=== PATIENT | female | born 1960 | race Caucasian/White ===

== ENCOUNTER → 2017-06-04 | Outpatient (CLI) | payer OTHER | END | disposition home or self-care (01) | LOC: LABWHC1 10:47 | PROVIDERS: ATTEND Physician Assistant | DX: D51.9 Vitamin B12 deficiency anemia, unspecified (principal) | CPT/HCPCS: 36415; 82607 ==

== ENCOUNTER → 2017-07-16 | Outpatient (CLI) | payer OTHER | END | disposition home or self-care (01) | LOC: LABWHC1 13:12 | PROVIDERS: ATTEND Physician Assistant | DX: R53.83 Other fatigue (principal) | CPT/HCPCS: 36415; 82607 ==

== ENCOUNTER → 2017-10-04 | Outpatient (CLI) | payer OTHER | LOC: LABWHC1 11:42 | PROVIDERS: ATTEND Physician Assistant | DX: R53.83 Other fatigue (principal) | CPT/HCPCS: 36415; 82607 ==

== ENCOUNTER → 2018-05-22 | Outpatient (CLI) | payer OTHER ==
--- NOTE | 2018-05-22 15:46 | FL ---
EXAMINATION TYPE: FL arthrogram shoulder RT fluoroscopic-guided arthrogram injection. DATE OF EXAM: 05/22/2018 HISTORY: Acute on chronic right shoulder pain PROCEDURES: 1. 28 seconds of fluoroscopy. 2. Right shoulder arthrogram. 3. A single fluoroscopic image was saved. TECHNIQUE: The procedure, risks, and alternatives, were discussed with the patient, who requested that nancie wong The consent form was signed, and teach-back occurred. The site/side of the procedure was marked with a line with participation by the patient. The accompan rodolfo paperwork was verified for consistency. A directed history and physical exam was performed prior to the procedure. Medication reconciliation was performed by ancillary personnel. A critical pause was performed with assisting personnel just pr ior to the procedure, and the patient's identity was confirmed using 2 identifiers. Imaging guidance was utilized to select the precise skin entry point just prior to the procedure. The right shoulder was prepped and draped in the usual sterile fashion and local 1% lidocaine anesthe ayaan was instilled. Under fluoroscopic guidance, a 22 gauge spinal needle was introduced into the rig ht glenohumeral joint. Appropriate needle tip position was confirmed after a small amount of contrast injection. Approximately 9 ml of a mixture of Isovue-370 iodinated contrast, saline and gadolinium was injected into the glenohumeral joint. The needle was then removed. The patient tolerated the procedure well. There was no immediate complication. After the procedure, the patient's condition was unchanged. E stimated blood loss was minimal. IMPRESSION: Technically successful right arthrogram injection for MRI. No immediate complication.
--- NOTE | 2018-05-23 10:23 | MR ---
EXAMINATION TYPE: MR shoulder arthrogram RT w co DATE OF EXAM: 05/22/2018 COMPARISON: None HISTORY: 1 month ago pt felt a pop in her rt shoulder and has had pain and limited ROM since TECHNIQUE: Multiplanar, multisequence images of the right shoulder is performed with 1 mL intravenous Gadavist gadolinium contrast. FINDINGS: Rotator Cuff: There is a near complete tear of the supraspinatus with very few diminutive most anteri or insertional fibers remaining. A large majority of the supraspinatus myotendinous junction is retra cted approximately 2.9 cm from its insertion on the humeral head footplate. There is no noted atrophy of the supraspinatus. There is a complete tear of the infraspinatus with retraction of the myotendinous junction of 1.8 cm. Atrophy of the infraspinatus is noted. The teres minor is unremarkable in muscle volume and signal. The subscapularis demonstrates increased signal of the insertional fibers compatible with mild tendinosis. No discrete tear. Acromioclavicular Joint: There is moderate acromioclavicular arthropathy with capsular hypertrophy an d small marginal osteophytes. No significant internal impingement is seen on the supraspinatus. Glenohumeral Joint: There is narrowing of the glenohumeral joint and few osseous cystic changes of th e humeral head compatible with mild glenohumeral arthropathy. Labrum: There appears to be a nondisplaced tear of the anterior posterior glenoid labrum and overall global labral degeneration. Biceps Tendon: The long head of biceps is in normal location within bicipital groove. There is attenu ation of the intra-articular portion of the biceps near its insertion on the biceps anchor compatible with mild tendinosis. Bone marrow signal: No focal abnormal marrow signal is appreciated. IMPRESSION: 1. Near complete tear of the supraspinatus with 2.9 cm retraction of the myotendinous junction and no notable atrophy. Only very few diminutive fibers are seen of the most anterior insertional fibers of the supraspinatus. 2. Complete tear of the infraspinatus with 1.8 cm myotendinous junction retraction and associated inf raspinatus muscular atrophy. 3. Nondisplaced anterior posterior glenoid labrum tear and diffuse labral degeneration. 4. Moderate acromioclavicular arthropathy and mild glenohumeral arthropathy. 5. Mild insertional long head of biceps and subscapularis tendinosis.
== END | disposition home or self-care (01) ==
LOC: RADFLMAIN 12:38
PROVIDERS: ATTEND Family Medicine
DX: M25.511 Pain in right shoulder (principal); G89.29 Other chronic pain
CPT/HCPCS: 23350; 73040; 73222; J2001; A9585 ×2; Q9967